=== PATIENT | female | born 1935 | race Caucasian/White ===

== ENCOUNTER 2017-05-31 09:31 | Emergency (ER) | payer MEDICARE, BC ==
[~2017-05-31] VITALS: Ht 154.9 cm; Wt 75.9 kg
[~2017-05-31 09:31] MED LIST: AMOX500T PO; COUM1TAB PO; COUM5TAB PO; PRIL20TA2 PO; ROZE8TAB PO
[2017-05-31 09:34] VITALS: BP 112/62; PULSE 94; RESP 18; TEMP 98.5; O2SAT 95
[2017-05-31] MEDS ORDERED: XARE10TA PO (09:48)
[2017-05-31] MEDS ORDERED: HYDR-4107 PO (09:48)
--- NOTE | 2017-05-31 09:58 | PD ---
HPI Chief Complaint: Fall Time Seen by Provider: 09:53 Travel History International Travel<30 days: No Contact w/Intl Traveler<30days: No Traveled to known affect area: No History of Present Illness HPI Patient presents after a fall from bed. Reports falling onto her right side approximately 3 feet at 12:30 this morning. She does not recall hitting her hand on any specific object. She did not call her daughter until this morning. 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 Denies any head trauma. Denies any loss of consciousness. Denies any neck pain. Complaints of right shoulder pain and laceration and pain to her right thumb. Unable to recall tetanus. Last meal, popcorn at 10:30 last night. 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 & TITANIUM FILTER IN AORTA) Other Surgery: Yes (, BLOOD CLOTS REMOVED BEHIND BOTH KNEES ,2007, FILTER, BLOOD CLOTS) Social History Alcohol Use: No Tobacco Use: No Substance Use: No Allergies-Medications (Allergen,Severity, Reaction): Coded Allergies: Lyrica (Verified Allergy, Severe, "MAKE ME CRAZY", 05/31/17) Reported Meds & Prescriptions Reported Meds & Active Scripts Active Reported Hydrocodone-Acetaminophen 5-300 Mg Tab Unknown Dose PO Q4H PRN Xarelto (Rivaroxaban) 10 Mg Tab Unknown Dose PO DAILY Review of Systems General / Constitutional: No: Fever Eyes: No: Visual changes HENT: No: Headaches Cardiovascular: No: Chest Pain or Discomfort Respiratory: No: Shortness of Breath Gastrointestinal: No: Abdominal Pain Genitourinary: No: Dysuria Musculoskeletal: Positive: Pain Skin: No Rash Neurologic: No: Weakness Psychiatric: No: Depression Endocrine: No: Polydipsia Hematologic/Lymphatic: No: Easy Bruising Physical Exam Narrative GENERAL: Well-nourished, well-developed patient. SKIN: Focused skin assessment warm/dry. HEAD: Normocephalic. EYES: No scleral icterus. No injection or drainage. NECK: Supple, trachea midline. No JVD or lymphadenopathy. CARDIOVASCULAR: Regular rate and rhythm without murmurs, gallops, or rubs. RESPIRATORY: Breath sounds equal bilaterally. No accessory muscle use. GASTROINTESTINAL: Abdomen soft, non-tender, nondistended. MUSCULOSKELETAL: No cyanosis, or edema. BACK: Nontender without obvious deformity. No CVA tenderness. Examination of the shoulder reveals ecchymosis and edema in the anterior aspect with pain on any range of motion Examination of the right elbow reveals no pain with flexion or extension Examination of the right wrist reveals no pain on flexion or extension Examination of the right hand thenar region reveals ecchymosis and edema with an open wound mid palmar thumb with concerns of open fracture. Other digits appear normal without pain on extension or flexion Data Data Last Documented VS Vital Signs Date Time Temp Pulse Resp B/P Pulse Ox O2 Delivery O2 Flow Rate FiO2 05/31/17 11:37 96 20 111/70 96 05/31/17 09:34 98.5 Orders Hand, Complete ([id number]) (05/31/17 ) Shoulder, Complete (>2vws) (05/31/17 ) Tetanus/Diphtheria Tox Adult (Tetanus/Di (05/31/17 10:00) Complete Blood Count With Diff (05/31/17 09:58) Act Partial Throm Time (Ptt) (05/31/17 09:58) Prothrombin Time / Inr (Pt) (05/31/17 09:58) Lidocaine 2% Inj (Xylocaine 2% Inj) (05/31/17 11:00) Splint Or Brace Apply/Monitor (05/31/17 11:57) Labs Laboratory Tests Test 05/31/17 10:20 White Blood Count 12.1 TH/MM3 Red Blood Count 3.51 MIL/MM3 Hemoglobin 10.8 GM/DL Hematocrit 32.5 % Mean Corpuscular Volume 92.6 FL Mean Corpuscular Hemoglobin 30.7 PG Mean Corpuscular Hemoglobin 33.2 % Concent Red Cell Distribution Width 13.2 % Platelet Count 216 TH/MM3 Mean Platelet Volume 7.9 FL Neutrophils (%) (Auto) 90.1 % Lymphocytes (%) (Auto) 4.3 % Monocytes (%) (Auto) 5.4 % Eosinophils (%) (Auto) 0.0 % Basophils (%) (Auto) 0.2 % Neutrophils # (Auto) 10.9 TH/MM3 Lymphocytes # (Auto) 0.5 TH/MM3 Monocytes # (Auto) 0.7 TH/MM3 Eosinophils # (Auto) 0.0 TH/MM3 Basophils # (Auto) 0.0 TH/MM3 CBC Comment DIFF FINAL Differential Comment Prothrombin Time 12.6 SEC Prothromb Time International 1.1 RATIO Ratio Activated Partial 22.8 SEC Thromboplast Time MDM Medical Decision Making Medical Screen Exam Complete: Yes Emergency Medical Condition: Yes Differential Diagnosis Humeral fracture, shoulder dislocation, open phalangeal fracture, thumb laceration Narrative Course Assessment and plan discussed with patient and daughter at bedside. Tetanus updated. Last 72 hours Impressions Shoulder X-Ray 05/31/17 0000 Signed Impressions: Service Date/Time: Wednesday, May 31, 2017 10:11 - CONCLUSION: 1. No acute fracture or malalignment. 2. Changes characteristic of chronic rotator cuff degeneration. Ld Li MD Hand X-Ray 05/31/17 0000 Signed Impressions: Service Date/Time: Wednesday, May 31, 2017 10:05 - CONCLUSION: 1. No acute fracture or malalignment. 2. Osteopenia and osteoarthritic change. Ld Li MD Procedures Procedure Narrative LACERATION LOCATION: Right mid palmar thumb LENGTH: 3 cm NUMBER OF STITCHES/SHAN: 6 interrupted REPAIR: The area of the laceration was prepped with Betadine and sterilely draped. The laceration was infiltrated with 2% lidocaine without epinephrine. The wound was copiously irrigated and explored without evidence of foreign body , tendon injury or neurovascular injury. The wound was closed using 5-0 Prolene. This was a single layer repair. A sterile dressing was applied. The patient was advised to keep the dressing clean and dry. Patient tolerated the procedure well. Diagnosis Primary Impression: Thumb laceration Qualified Code: S61.011A - Laceration of right thumb without foreign body without damage to nail, initial encounter Additional Impressions: Traumatic hematoma of right hand Qualified Code: S60.221A - Traumatic hematoma of right hand, initial encounter Contusion of right shoulder Qualified Code: S40.011A - Contusion of right shoulder, initial encounter Patient Instructions: General Instructions Additional Instructions: Thumb spica and arm sling for comfort, encouraged general range of motion several times per day. Follow-up with PCP for suture removal in 10-12 days. Patient does not have a local PCP or orthopedic but is returning home to [place] where I have advised her to consider further workup for rotator cuff damage. Encourage antibacterial soap and water 2 times a day with application of antibacterial ointment. Return to emergency room with any onset of new symptoms. May continue anticoagulant. Encouraged ice to shoulder and hand. Keep hand elevated. Patient has pain medication at home which she takes nightly. Encouraged Tylenol if needed during the day. Med/Other Pt SpecificInfo: No Meds Exist/No RX given Disposition: 01 DISCHARGE HOME Condition: Good Abraham Arias MD May 31, 2017 09:58
[2017-05-31] MEDS ORDERED: TETANUS/DIPHTHERIA TOXOID ADULT 0.5 ML VIAL IM ONE (10:00)
--- NOTE | 2017-05-31 10:28 | RADRPT ---
EXAM DATE/TIME: 05/31/2017 10:11 [facility] COMPARISON: No previous studies available for comparison. INDICATIONS : Fall. Right shoulder pain. MEDICAL HISTORY : None. SURGICAL HISTORY : None. ENCOUNTER: Initial ACUITY: 1 day PAIN SCORE: 7/10 LOCATION: Right scapular FINDINGS: AP views of the right shoulder were obtained with internal and external rotation as well as Y. view o f scapula. This demonstrates no acute fracture. There is narrowing of the acromiohumeral distance wit h eburnation and sclerosis involving the inferior acromion. The glenohumeral joint and acromioclavicu lar joints are intact. There is mild osteopenia. The soft tissues are unremarkable. CONCLUSION: 1. No acute fracture or malalignment. 2. Changes characteristic of chronic rotator cuff degeneration. Ld Li MD on May 31, 2017 at 10:25 Board Certified Radiologist. This report was verified electronically.
[2017-05-31 10:30] LABS: AUTOMATED NEUTROPHIL # 10.9 TH/MM3 (1.8-7.7); BASOPHIL % 0.2 % (0.0-2.0); HEMATOCRIT 32.5 % (35.0-46.0); HEMO FLAGS DIFF FINAL; LYMPH % 4.3 % (9.0-44.0); LYMPHOCYTE # 0.5 TH/MM3 (1.0-4.8); MEAN CELL VOLUME 92.6 FL (80.0-100.0); MEAN CORPUSCULAR HEMOGLOBIN 30.7 PG (27.0-34.0); MEAN CORPUSCULAR HGB CONC 33.2 % (32.0-36.0); MONO % 5.4 % (0.0-8.0); NEUT % 90.1 % (16.0-70.0); PLATELET COUNT 216 TH/MM3 (150-450); RED BLOOD COUNT 3.51 MIL/MM3 (4.00-5.30); RED CELL DISTRIBUTION WIDTH 13.2 % (11.6-17.2); WHITE BLOOD COUNT 12.1 TH/MM3 (4.0-11.0)
--- NOTE | 2017-05-31 10:34 | RADRPT ---
EXAM DATE/TIME: 05/31/2017 10:05 [facility] COMPARISON: No previous studies available for comparison. INDICATIONS : Fall. Right hand pain. MEDICAL HISTORY : None. SURGICAL HISTORY : None. ENCOUNTER: Initial ACUITY: 1 day PAIN SCORE: 6/10 LOCATION: Right upper extremity FINDINGS: AP, lateral and oblique views of the right hand were obtained and demonstrate diffuse osteopenia and degenerative change. The degenerative changes are greatest involving the first metacarpal carpal join t and distal interphalangeal joints with joint space loss, sclerosis and hypertrophic change. There i s diffuse osteopenia with no acute fracture or malalignment. The distal radius and ulna are intact. T he carpus is intact as well. CONCLUSION: 1. No acute fracture or malalignment. 2. Osteopenia and osteoarthritic change. Ld Li MD on May 31, 2017 at 10:31 Board Certified Radiologist. This report was verified electronically.
[2017-05-31 10:41] LABS: APTT (PATIENT) 22.8 SEC (24.3-30.1); INTERNATIONAL NORMALIZED RATIO 1.1 RATIO; PROTHROMBIN TIME - PATIENT 12.6 SEC (9.8-11.6)
[2017-05-31 10:44] VITALS: BP 106/68; PULSE 100; RESP 20; O2SAT 97
[2017-05-31] MEDS ORDERED: LIDOCAINE HCL 2% 50 ML VIAL INFIL ONE (11:00)
[2017-05-31 11:37] VITALS: BP 111/70; PULSE 96; RESP 20; O2SAT 96
== END 2017-05-31 12:21 | disposition home or self-care (01) ==
LOC: PHED 09:31
DX: S61.011A Laceration without foreign body of right thumb without damage to nail, initial encounter (principal); S40.011A Contusion of right shoulder, initial encounter; S60.221A Contusion of right hand, initial encounter; W06.XXXA Fall from bed, initial encounter; Z23 Encounter for immunization
CPT/HCPCS: 12002; 73030; 73130; 85025; 85610; 85730; 90471; 90714; 99284; L3808

== ENCOUNTER 2017-06-09 11:56 | Emergency (ER) | payer MEDICARE, BC ==
[~2017-06-09] VITALS: Ht 154.9 cm; Wt 75.0 kg
[~2017-06-09 11:56] MED LIST changes: -AMOX500T PO; -COUM1TAB PO; -COUM5TAB PO; +HYDR-4107 PO; -PRIL20TA2 PO; -ROZE8TAB PO; +XARE10TA PO
[2017-06-09 12:00] VITALS: BP 157/76; PULSE 107; RESP 16; TEMP 98.3; O2SAT 97
--- NOTE | 2017-06-09 12:57 | PD ---
HPI Chief Complaint: Wound/Suture/Staple Re-Check Time Seen by Provider: 12:24 Travel History International Travel<30 days: No Contact w/Intl Traveler<30days: No Traveled to known affect area: No History of Present Illness HPI 82-year-old female presents to the emergency room for suture removal. Patient had 6 sutures placed in her right thumb 9 days ago. States she has not removed the dressing since sutures were placed. She has not cleaned the wound or applied any medication today. She sustained the wound after she fell off the side of her bed and hit her right shoulder on the ground. She had x-rays of her shoulder and hand at initial emergency room visit were both negative. Patient has not been able to follow up with her primary care physician because she is in the process of moving from [place] to [place]. She reports continued pain in the right shoulder especially over a large lump that has developed. He reports decreased range of motion of the right thumb and pain directly over the laceration. She is on Xarelto and was told to continue taking medication. She denies fever, chills, nausea, and vomiting. PFSH Past Medical History Hx Anticoagulant Therapy: Yes Arthritis: Yes Cardiovascular Problems: Yes (PE) Diminished Hearing: No Deep Vein Thrombosis: Yes (LEFT LEG) Genitourinary: No Musculoskeletal: Yes Neurologic: No Reproductive: No Respiratory: Yes (PE) Immunizations Current: No Menopausal: Yes Past Surgical History Cardiac Surgery: Yes ( 2002--OPEN HEART SURGERY REPAIRED HOLE IN HEART & TITANIUM FILTER IN [place]) Other Surgery: Yes (, BLOOD CLOTS REMOVED BEHIND BOTH KNEES ,2007, FILTER, BLOOD CLOTS) Social History Alcohol Use: No Tobacco Use: No Substance Use: No Allergies-Medications (Allergen,Severity, Reaction): Coded Allergies: pregabalin (Unverified Allergy, Severe, "MAKE ME CRAZY", 06/09/17) Reported Meds & Prescriptions Reported Meds & Active Scripts Active Tramadol (Tramadol HCl) 50 Mg Tab 50 Mg PO Q6H PRN Keflex (Cephalexin) 500 Mg Capsule 500 Mg PO Q6H 7 Days Reported Hydrocodone-Acetaminophen 5-300 Mg Tab Unknown Dose PO Q4H PRN Xarelto (Rivaroxaban) 10 Mg Tab Unknown Dose PO DAILY Review of Systems Except as stated in HPI: all other systems reviewed are Neg Physical Exam Narrative GENERAL: Well-nourished, well-developed female in no acute distress. Afebrile. Ambulatory. SKIN: Focused skin assessment warm/dry. Extreme ecchymosis of the right upper extremity and bilateral breasts. There is a dehisced 1.5 cm wound on the right volar thumb with macerated skin. No purulent drainage, surrounding erythema, lymphangitis noted. HEAD: Normocephalic. EYES: No scleral icterus. No injection or drainage. NECK: Supple, trachea midline. No JVD or lymphadenopathy. CARDIOVASCULAR: Regular rate and rhythm without murmurs, gallops, or rubs. RESPIRATORY: Breath sounds equal bilaterally. No accessory muscle use. MUSCULOSKELETAL: No cyanosis. Moderate edema of the right thumb with surrounding ecchymosis. No edema of the right upper extremity. Full range of motion of the right upper extremity. Limited range of motion of the thumb secondary to pain. Less than 2 second capillary refill distally. Data Data Last Documented VS Vital Signs Date Time Temp Pulse Resp B/P (MAP) Pulse Ox O2 Delivery O2 Flow Rate FiO2 06/09/17 12:00 98.3 107 16 157/76 (103) 97 Orders Orders Wound Care (06/09/17 13:46) MDM Medical Decision Making Medical Screen Exam Complete: Yes Emergency Medical Condition: Yes Medical Record Reviewed: Yes Differential Diagnosis Hematoma, dehiscence, laceration, infection, contusion Narrative Course 82-year-old female presents to the emergency room for suture removal. Patient had 6 sutures placed in her right thumb 9 days ago. She also complains of right shoulder pain and swelling that is increasing. Physical exam reveals dehiscence of wound of the right, volar thumb. Patient has not performed any wound care and there is a slight malodor. No significant drainage, lymphangitis , erythema, or tenderness to palpation. Steri-Strips and a street thumb splint were applied. There is a large, tennis ball sized hematoma to the right axillary region. There is significant surrounding ecchymosis into bilateral breasts and right upper extremity. No evidence of secondary infection at this time. No systemic signs of infection. Vital signs stable. X-rays of the thumb and shoulder last week were negative. I had my attending physician, Dr. Doyle, assessed the patient and agrees there are no emergent indications for evacuation of this time. Patient was told to follow-up with her primary care physician if symptoms persist or return for worsening symptoms. She was discharged with prescription for Keflex to cover infection on her right thumb. She understands and agrees to plan. Diagnosis Primary Impression: Visit for suture removal Additional Impression: Traumatic hematoma of right shoulder Qualified Codes: S40.011A - Contusion of right shoulder, initial encounter Referrals: Primary Care Physician Additional Instructions: Rest and drink plenty of fluids. Take Keflex as directed, until gone. Take tramadol with food as directed, as needed for pain. Do not drink alcohol or drive while taking this medication. Apply ice to the affected area for 20 minutes at a time, as needed for pain and swelling. Follow-up with a primary care physician. Return to the emergency room for worsening symptoms. Med/Other Pt SpecificInfo: Prescription(s) given Scripts Tramadol (Tramadol) 50 Mg Tab 50 MG PO Q6H Y for PAIN, #12 TAB 0 Refills Prov: Anjel Doyle MD 06/09/17 Cephalexin (Keflex) 500 Mg Capsule 500 MG PO Q6H for Infection for 7 Days, CAP 0 Refills Prov: Anjel Doyle MD 06/09/17 Disposition: 01 DISCHARGE HOME Condition: Stable Amelia Carbone Jun 09, 2017 12:57
[2017-06-09] MEDS ORDERED: CEPH-460 PO (13:27)
[2017-06-09] MEDS ORDERED: TRAM50TA PO (13:46)
== END 2017-06-09 14:07 | disposition home or self-care (01) ==
LOC: PHEFT 11:56
DX: S40.011A Contusion of right shoulder, initial encounter (principal); W19.XXXA Unspecified fall, initial encounter
CPT/HCPCS: 99284